=== PATIENT | male | born 1960 | race Caucasian/White ===

== ENCOUNTER 2020-09-25 20:57 | Observation (INO) | payer MEDICARE ==
[~2020-09-25] VITALS: Ht 182.9 cm; Wt 95.0 kg
[2020-09-25] MEDS ORDERED: NORVASC PO (21:21)
[2020-09-25] MEDS ORDERED: ZESTRIL10 M1 PO (21:22)
--- NOTE | 2020-09-25 21:50 | NUR ---
PT. TO ROOM 3 WITH C/I ABSCESS MID BACK STARTING APPROX. 1 WEEK AGO. AREA IS REDDENED AND HARD, NO DRAINAGE NOTED. PT. STATES HE SAW HIS PCP 2 DAYS AGO WHEN HE WAS STARTED ON AN UNKNOWN ABT.
[2020-09-25 21:57] LABS: HEMATOCRIT 39.5 % (39.0-50.0); HEMOGLOBIN 13.2 g/dl (14.0-18.0); IMMATURE GRANULOCYTES 0.2 % (0.0-5.0); MEAN CELL VOLUME 93.4 fL CALC (80.0-100.0); MEAN CORPUSCULAR HGB 31.2 pG CALC (26.0-32.0); MEAN CORPUSCULAR HGB CONC 33.4 g/dL CAL (32.0-36.0); NEUT# 5.11 thou/uL (1.82-7.42); RED BLOOD COUNT 4.23 mill/uL (4.70-6.10); RED CELL DISTRI WIDTH 12.3 % (11.5-15.5)
[2020-09-25 22:19] LABS: ALBUMIN 4.1 g/dL (3.2-5.0); ALKALINE PHOSPHATASE 132 u/l (38-126); ANION GAP 10 (6-22 (CALC)); BUN 11 mg/dL (9-20); BUN/CREATININE RATIO 11 (12-20 (CALC)); CARBON DIOXIDE 26 mmol/l (22-30); CHLORIDE 105 mmol/l (95-108); GFR > 60 ML/MIN (>=60 (CALC)); GFR FOR AFR.AMER. > 60 ML/MIN (>=60 (CALC)); POTASSIUM 3.7 mmol/l (3.5-5.1); SGOT/AST 91 u/l (17-59); SODIUM 137 mmol/l (137-146); TOTAL PROTEIN 6.7 g/dL (6.3-8.2)
[2020-09-25 22:23] LABS: BILIRUBIN, TOTAL 1.2 mg/dL (0.0-1.4)
--- NOTE | 2020-09-25 22:35 | NUR ---
IV ABT. INFUSING WELL, NO REDNESS OR EDEMA NOTED.
--- NOTE | 2020-09-25 23:35 | NUR ---
PT. LYING ON SIDE. IV ABT. INFUSING WELL, NO REDNESS OR EDEMA NOTED.
--- NOTE | 2020-09-26 02:00 | NUR ---
PT RESTING. AT BEDSIDE. PT MOVED TO HOSPITAL BED. LIGHTS DIMMED. VOIDED 600 CC IN URINAL.
[2020-09-26 07:30] VITALS: BP 131/78
--- NOTE | 2020-09-26 07:30 | NUR ---
pt resting in bed, offers no new complaints, pt here for abscess to mid lower back under old lumbar surgical site, admission assessment completed see interventions, vs stable pt uses urinal w/o incident, offers no complaits, aware of hold related to [facility] hospital room availble at this time, comfort measure provided will continue to monitor.
--- NOTE | 2020-09-26 07:33 | NUR ---
VOIDED 700 CC IN URINAL. PT RESTING. NAD. PLAYING WITH PHONE. NO C/O.
--- NOTE | 2020-09-26 08:30 | NUR ---
OFFERED AM MEAL AND DECLINED AT THIS TIME, CALL GELLER WITHIN REACH
--- NOTE | 2020-09-26 09:10 | NUR ---
PT CHECKED HOURY. RESTING. NAD.
--- NOTE | 2020-09-26 11:15 | NUR ---
declined am meal, set up assist provided for am meal, resting on side for comfrt, call sanon within reach
--- NOTE | 2020-09-26 12:37 | NUR ---
PT RESTING AT BEDSIDE COMPLAINTS OF HIP PAIN WILL NOTIFY MD FOR ORDERS, IV SITE FLUSHES W/O INCIDENT, AND ABT INFUSING ORDERED. COMFORT MEASURES PROVIDED VOIDS CLEAR YELLOW URINE W/O INCIDENT.
--- NOTE | 2020-09-26 14:15 | NUR ---
spoke with who declines pt states that he needs to see and orhtopedic doctor or the doctor who performed the surgery. pt aware and in agreeance, aware and working on plans to trasnfer to [facility]
--- NOTE | 2020-09-26 15:17 | NUR ---
pt aware of potetnial trasnfer to [facility] related to needing ortho consult, at bedside, minimal intake of afternoon meal, will continue to monitor
--- NOTE | 2020-09-26 15:47 | NUR ---
PT STATES GOOD PAIN RELIEF WITH LORTAB, RESTING ON BACK AT THIS TIME, GONE AT THIE TIME AND AWARE OF PLANNED TRANSFER TO ANOTHER FACILITY.
--- NOTE | 2020-09-26 16:15 | NUR ---
REPORT RECEIVED FROM MARVA SAEED. PT RESTING ON STRETCHER WITH EYES OPEN. ADVISED OF TRANSFER. VERBALIZED UNDERSTANDING. DENIES ANY NEEDS. CALL LIGHT WITHIN REACH.
--- NOTE | 2020-09-26 19:00 | NUR ---
PT RESTING ON STRETCHER IN NAD. RESP EVEN AND UNLABORED. SKIN WARM AND DRY. PER PT HAD LUMBAR SURGERY 8 YEARS AGO AND ABSCESS HAD FORMED AFTER OPERATION AND WAS TREATED. SURGERIES DONE IN [place].
--- NOTE | 2020-09-26 20:00 | NUR ---
BP NOTED TO BE 100/70. DR LICEA ADVISED AND ORDER TO HOLD BP MEDS FOR TONIGHT.
--- NOTE | 2020-09-26 20:54 | NUR ---
PT MEDICATED FOR PAIN PER REQUEST. TOLERATED ADMINSTRATION WELL.
--- NOTE | 2020-09-27 00:04 | NUR ---
REPORT GIVEN TO CHRISTOPHE ROMERO AT [facility]
[2020-09-27 00:20] VITALS: BP 118/73
--- NOTE | 2020-09-27 00:25 | NUR ---
PT TRANSPORTED TO [facility] VIA FOR TRANSFER.
== END 2020-09-27 00:25 ==
LOC: ED 20:57 → ED-I 21:34 → ED 09-26 01:36 → ED-I 09-26 01:37
PROVIDERS: Emergency Medicine; ADMIT Internal Medicine; ATTEND Internal Medicine
DX: L02.212 Cutaneous abscess of back [any part, except buttock and flank] (principal); I10 Essential (primary) hypertension; I25.10 Atherosclerotic heart disease of native coronary artery without angina pectoris; Z98.890 Other specified postprocedural states; Z86.19 Personal history of other infectious and parasitic diseases; Z20.822 Contact with and (suspected) exposure to COVID-19
CPT/HCPCS: Q9967